=== PATIENT | female | born 1985 | race Caucasian/White ===

== ENCOUNTER 2019-09-16 14:13 | Emergency (ER) | payer BC, SELFPAY ==
[2019-09-16 14:13] VITALS: BP 120/68; PULSE 90; RESP 26; O2SAT 100; BMI 21.7
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
[2019-09-16] MEDS: ondansetron 2 mg/ML SDV 2 mL 4 MG IVP (14:29)
[2019-09-16 14:31] VITALS: RESP 20
[2019-09-16] MEDS: HYDROmorphone 1 mg/mL INJ 1 mL (14:31)
[2019-09-16] MEDS: HYDROmorphone 1 mg/mL INJ 1 mL 2 MG (14:31)
[2019-09-16 14:36] LABS: Basophils % 0.2 %; Eosinophils # 0.3 10^3/uL (0.0-0.8); Eosinophils % 1.7 %; Hematocrit 41.9 % (37.0-47.0); Hemoglobin 12.5 g/dL (11.5-15.3); Lymphocytes # 2.9 10^3/uL (0.8-4.8); Lymphocytes % 16.9 %; Mean Corpuscular HGB Conc 29.8 g/dL (30.0-36.0); Mean Corpuscular Hemoglobin 26.7 pg (28.0-34.0); Mean Corpuscular Volume 89.3 fL (81-99); Mean Platelet Volume 11.4 fL (7.4-10.4); Monocytes # 0.9 10^3/uL (0.2-0.9); Monocytes % 5.4 %; Neutrophils # 12.8 10^3/uL (1.8-7.7); Neutrophils % 75.4 %; Nucleated Red Blood Cells % 0 %; Platelet Count 250 10^3/cmm (130-400); Red Blood Count 4.69 10^6/uL (4.1-5.3); Red Cell Distribution Width 12.8 % (12.1-15.1)
[2019-09-16 14:37] VITALS: RESP 20
[2019-09-16 14:37] LABS: INR 1.08 (0.8-1.2)
[2019-09-16] MEDS: ondansetron 2 mg/ML SDV 2 mL 4 MG ×2 (14:37→15:10)
[2019-09-16] MEDS: sodium chloride 0.9% 1,000 ML 999 ML IV ×2 (14:37→15:11)
[2019-09-16] MEDS: HYDROmorphone 1 mg/mL INJ 1 mL 3 MG IVP (14:37)
[2019-09-16 14:45] LABS: Alanine Aminotransferase 26 U/L (0-33); Albumin Level 4.4 g/dL (3.5-5.2); Alkaline Phosphatase 54 IU/L (35-105); Anion Gap 15.3 (5-19); Aspartate Amino Transferase 37 U/L (0-32); Blood Urea Nitrogen 11 mg/dL (6-20); Calcium 9.1 mg/dL (8.5-10.5); Carbon Dioxide 21 mmol/L (22-29); Chloride 102 mmol/L (98-107); Globulin 2.5 g/dL (1.3-4.6); Glomerular Filtration Rate 113.1 mL/min (90-130); Glucose 154 mg/dL (74-109); Potassium 3.3 mmol/L (3.5-5.1); Sodium 135 mmol/L (136-145); Total Bilirubin 0.4 mg/dL (0.15-1.2); Total Protein 6.9 g/dL (6.6-8.7)
[2019-09-16 14:47] LABS: Alcohol Level < 10 mg/dL (0-10)
[2019-09-16] MEDS: ceFAZolin 1,000 MG in sodium chloride 0.9% (plus) 50 ML 100 MG IV (14:51)
--- NOTE | 2019-09-16 14:53 | PC.NURSE ---
Pt returned from CT. Family updated.
[2019-09-16] MEDS: LORazepam 2 mg/mL INJ 1 mL 0.5 MG IVP (15:40)
[2019-09-16 15:41] VITALS: BP 106/68; PULSE 71; RESP 12; O2SAT 98
[2019-09-16 15:51] VITALS: BP 114/66; PULSE 86; RESP 16; O2SAT 99
[2019-09-16] MEDS: iodixanol 320 mg/mL 100mL Btl IV (16:08)
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
== END 2019-09-16 15:52 | disposition other institution (70) ==
LOC: ER 14:58
PROVIDERS: Emergency Provider Emergency Medicine; Family Provider Family Medicine; PCP Family Medicine
DX: S12.100A Unspecified displaced fracture of second cervical vertebra, initial encounter for closed fracture (principal); S82.251A Displaced comminuted fracture of shaft of right tibia, initial encounter for closed fracture; S82.51XA Displaced fracture of medial malleolus of right tibia, initial encounter for closed fracture; S82.831A Other fracture of upper and lower end of right fibula, initial encounter for closed fracture; S01.01XA Laceration without foreign body of scalp, initial encounter; V89.2XXA Person injured in unspecified motor-vehicle accident, traffic, initial encounter; S89.192A Other physeal fracture of lower end of left tibia, initial encounter for closed fracture; S82.52XA Displaced fracture of medial malleolus of left tibia, initial encounter for closed fracture; S82.422A Displaced transverse fracture of shaft of left fibula, initial encounter for closed fracture; S92.192A Other fracture of left talus, initial encounter for closed fracture
CPT/HCPCS: 12001; 12004; 36415; 51702; 70450; 71260; 72125; 73610; 74177; 80053; 80307; 83605; 85025; 85610; 86900; 96360; 96361; 96365; 96374; 99284; J0690; J1170; J2001; J2060; J2405; J7030; Q9967

== ENCOUNTER 2020-04-25 10:10 | Emergency (ER) | payer MEDICAID, SELFPAY ==
[2020-04-25 10:16] VITALS: BP 147/81; PULSE 94; RESP 16; TEMP 36.7; O2SAT 95; BMI 24.7
[2020-04-25 10:25] VITALS: PULSE 87
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
[2020-04-25 10:46] VITALS: BP 119/84; PULSE 72; RESP 18; O2SAT 99
== END 2020-04-25 10:47 | disposition home or self-care (01) ==
LOC: ER 11:18
PROVIDERS: Emergency Provider Nurse Practitioner Family
DX: M79.605 Pain in left leg (principal)
CPT/HCPCS: 12345; 99281

== ENCOUNTER 2021-05-28 16:38 | Emergency (ER) | payer BC, MEDICAID, SELFPAY ==
[2021-05-28 17:28] VITALS: BP 129/84; PULSE 67; RESP 16; TEMP 36.7; O2SAT 99; BMI 27.9
--- NOTE | 2021-05-28 17:52 | XRR_ITS ---
PROCEDURE INFORMATION: Exam: XR Left Ankle Exam date and time: 05/28/2021 5:52 PM Age: 35 years old Clinical indication: Injury or trauma; Fall; Sprain or strain; Ankle; Left; Prior surgery TECHNIQUE: Imaging protocol: XR Left ankle. Views: 3 or more views. COMPARISON: No relevant prior studies available. FINDINGS: Bones/joints: No acute fractures. Joint space narrowing throughout tibiotalar joint. Patchy sclerotic mineralization changes of the distal tibia. Cortical irregularity and fragmentation on the anterior side of the distal tibia. Surgical plate and screws fixate the medial tibia and the lateral fibula without evidence of hardware loosening. Surgical plate and screw fixation of 1st digit. Small osseous fragments project at the anterior margin of the tibiotalar joint. Arthritis changes with joint space narrowing and subcortical sclerosis of the subtalar joint. Soft tissues: Normal. XR/XR ankle LT min 3V* [id number] IMPRESSION: Arthritis changes throughout the hindfoot. Radiation Dose CTDIVOL = (mGy): DLP = (mGy-cm)
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
[2021-05-28] MEDS: HYDROcodone-acetaminophen 5-325 mg Tablet 1 TAB PO (18:35)
[2021-05-28 18:37] VITALS: BP 122/82; PULSE 60; RESP 18; O2SAT 100
== END 2021-05-28 18:35 | disposition home or self-care (01) ==
PROVIDERS: Emergency Provider Nurse Practitioner Family; PCP Nurse Practitioner Family
DX: S93.402A Sprain of unspecified ligament of left ankle, initial encounter (principal); S96.912A Strain of unspecified muscle and tendon at ankle and foot level, left foot, initial encounter; X50.1XXA Overexertion from prolonged static or awkward postures, initial encounter
CPT/HCPCS: 73610; 99283

== ENCOUNTER 2021-10-01 08:40 | Emergency (ER) | payer OTHER, BC, MEDICAID, SELFPAY ==
[2021-10-01 08:54] VITALS: BP 114/80; PULSE 81; RESP 16; TEMP 36.5; O2SAT 98; BMI 28.7
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
--- NOTE | 2021-10-01 09:17 | XR_ITS ---
WS: [id number] XR ankle LT min 3V* [id number] REASON FOR EXAM: fall injury with ankle pain FINDINGS: No acute fracture identified. Plate and screw fixation of previous tibial and fibular fractures. Alignment and position of the plat e and screws are unchanged compared to 05/28/2021. Moderately severe posttraumatic osteoarthritis of the ankle joint. XR/XR ankle LT min 3V* [id number] IMPRESSION: No acute abnormality.
--- NOTE | 2021-10-01 09:18 | PC.NURSE ---
Pt states she fell on ice. states she did not hit her head. pt had a tubal reversal 3 days ago. wanted to get the stitches checked out. c/o alta ankle pain. no deformity noted.
--- NOTE | 2021-10-01 09:19 | W.ED.FALL ---
HPI - Fall General: Chief Complaint: Fall Stated Complaint: Left leg pain Time Seen by Provider: 10/01/21 09:08 History of Present Illness: Patient is a 36-year-old female who comes to the ED after having a fall. Patient says she went outside and slipped on some ice. During fall she hurt both right and left ankle. She rates her pain currently an 8 out of 10. Patient did have a recent tubal reversal surgery approximately 3 days ago. She wanted us to check the surgical incision site. She wanted us to make sure the incision site did not after fall. Denies any known bleeding or drainage from surgical incision site. Associated symptoms-after fall: Denies abdominal pain, chest pain, headache(s), hematuria or neck pain Review of Systems Const: Denies: fever(s), chills or fatigue Eyes: Denies: change in vision or eye discomfort ENMT: Denies: throat pain, odynophagia, nasal discharge or nasal congestion Card: Denies: chest pain, palpitations, edema, swelling of feet/ankles, dyspnea on exertion or orthopnea Resp: Denies: dyspnea, productive cough or non-productive cough GI: Denies: abdominal pain, nausea, vomiting, diarrhea, constipation or hematochezia : Denies: flank pain, dysuria or hematuria Musc: Reports: extremity pain (right and left ankle); Denies: neck pain or back pain Skin/Breast: Denies: rash or new lesions Neuro: Denies: headache(s) [facility] ED PFSH: Medical History Ankle fracture, left No pertinent family history Social History Smoking and tobacco status: unknown if ever smoked Female Reproductive History: Date of last menstrual period: 09/18/21 Physical Exam Const: COMMON NORMALS: no acute distress, patient oriented x3, healthy appearing and alert GENERAL APPEARANCE: cooperative and comfortable HENMT: COMMON NORMALS: normocephalic HEAD & SCALP: normocephalic MOUTH: Normal oral and palatal mucosa present THROAT: posterior oropharynx normal and uvula midline Neck/C-Spine: COMMON NORMALS: supple GENERAL: Yes normal visual inspection Resp: COMMON NORMALS: normal respiratory effort, No retractions, No use of accessory muscles and clear to auscultation bilaterally AUSCULTATION: clear to auscultation bilaterally Cardio: COMMON NORMALS: regular rate, regular rhythm, S1 normal heart sound present, S2 normal heart sound present, No gallops present (Cardio), No clicks present (Cardio), No murmurs present (Cardio) and Peripheral pulses 2+ throughout RATE: regular rate RHYTHM: regular rhythm HEART SOUNDS: S1 normal heart sound present and S2 normal heart sound present PERIPHERAL PULSES: Peripheral pulses 2+ throughout GI: COMMON NORMALS: Normal to inspection, nondistended, normoactive bowel sounds present, Soft to palpation, non-tender and no masses INSPECTION: Yes incision (6 cm incision over lower mid pelvis. No bleeding or drainage.) Inspection of incision: healing well (No signs of any cellulitis noted. Mild right side dehiscence) PALPATION: Yes Soft to palpation : COMMON NORMALS: Yes no CVA tenderness BLADDER/KIDNEY EXAM: Yes no CVA tenderness Back/Pelvis: COMMON NORMALS: no CVA tenderness Extremity: RIGHT LOWER EXTREMITY: Yes foot & digits Right ankle: Yes inspection (No visible deformity.), Yes palpation (Tenderness over medial aspect of ankle), Yes ROM (Limited due to pain) and Yes neurovascular exam (Intact) LEFT LOWER EXTREMITY: Yes ankle joint Left ankle: Yes inspection (No visible deformity seen), Yes palpation (Tenderness over lateral malleolus), Yes ROM (Limited due to pain) and Yes neurovascular exam (Intact) Neuro: COMMON NORMALS: patient oriented x3 and moves all extremities SENSORIUM/ORIENTATION: Yes alert Skin: GENERAL SKIN EXAM: dry skin WOUNDS: Yes surgical site (Incision site healing well-no erythema, drainage or bleeding.) Details: size (6cm) and bed Details: granulating well OTHER: The right edge of the wound had some very mild dehiscence. Course ED course: The right edge of surgical site on mid lower pelvis had very mild dehiscence. No erythema, warmth, drainage or bleeding seen. A Steri-Strip was placed to help keep incision area closed and help with healing. No signs of any cellulitis around incision site noted. Vital Signs: Vital signs: Vital Signs Temperature 97.7 F 10/01/21 08:54 Pulse Rate 81 10/01/21 08:54 Respiratory Rate 16 10/01/21 08:54 Blood Pressure 114/80 02/07/22 08:54 Pulse Oximetry 98 02/07/22 08:54 MDM - Fall Medical Decision Making Patient is a 36-year-old female comes to the ED with bilateral ankle pain after fall. Patient has a history of a past left ankle fracture. Vitals are stable. Patient appears in no acute distress or pain. No visible deformities noted but she does have some mild tenderness of bilateral ankles. Neurovascular intact. Patient did want me to examine her recent incision site to make sure fall did not cause the incision to open up. Patient has a 6 cm incision site in the mid pelvis that is healing well and showing no signs of any infection. There was a little bit of wound dehiscence on the right edge of incision site so a Steri-Strip was placed. X-rays of right and left ankle showed no acute fractures or findings. Patient was diagnosed with a sprain strain of ankle and discharged home. She was told to use her crutches at home to help with ambulation for the next couple days. Rest, ice and elevate ankle. Follow-up with PCP in 7 to 10 days for reevaluation. Return to ED precautions given. Patient understood and agreed with plan. Lab Data Radiology Impressions Ankle X-Ray 10/01/21 09:17 IMPRESSION: Previous complex fracture dislocation with fixation. No acute abnormality. Discharge Plan Discharge Patient Disposition: Home Clinical Impression: Sprain and strain of ankle Condition: Stable Prescriptions: No Action fluoxetine 20 mg capsule 40 mg PO DAILY 0RF ropinirole 1 mg tablet 2 mg PO DAILY PRN0RF meloxicam 7.5 mg tablet 7.5 mg PO BID 0RF gabapentin 300 mg capsule 300 mg PO DAILY 0RF tramadol 50 mg tablet 50 mg PO Q6H PRN (Reason: pain) Qty: 14 0RF Skelaxin 800 mg tablet 800 mg PO TID PRN (Reason: muscle pain) Qty: 10 0RF hydrocodone-acetaminophen 5-325 mg tablet 1 tab PO TID PRN (Reason: pain) Qty: 7 0RF Discharge Orders: Discharge ED (Routine); Ordered 10/01/21 Ordered By: Víctor Stiles Referrals: Edwin Schmitz NP [Primary Care Provider] - Discharge Diet: Regular Discharge Activity: Limit activity as instructed and Use walker/crutches as instructed Patient Instructions: Ankle Sprain (ED) Activity Restrictions/Additional Instructions: Follow-up with medical provider as directed in 7 to 10 days for reevaluation. Rest, ice and elevate ankles to help with symptoms. Use crutches to help with ambulation and limit weightbearing for the next 2 to 3 days. Take [id number] Tylenolor ibuprofen per bottle instructions to help with pain and inflammation. Return to the ER or your medical provider if condition worsens. Please read and understand discharge instructions. Thank you for choosing [facility] for your healthcare needs today. Please realize this is an emergency room and that we are providing you with a medical screening exam and this may not be complete and all inclusive of all the testing and or work up that you may need to determine your ailment or severity of your illness. It is very important that you follow up as instructed or that you return to the Emergency Department should you have concerns or if your condition changes or worsens in any way. Coding Level of Care Code ED Blow Down Operator for Deborah Han Exam Comprehensive
[2021-10-01] MEDS: HYDROcodone-acetaminophen 7.5-325 mg Tablet 1 TAB PO (09:31)
[2021-10-01 10:11] VITALS: BP 100/57; PULSE 72; RESP 18; O2SAT 98
== END 2021-10-01 10:13 | disposition home or self-care (01) ==
PROVIDERS: Emergency Provider Physician Assistant; PCP Nurse Practitioner Family
DX: S93.402A Sprain of unspecified ligament of left ankle, initial encounter (principal); S96.912A Strain of unspecified muscle and tendon at ankle and foot level, left foot, initial encounter; W00.0XXA Fall on same level due to ice and snow, initial encounter
CPT/HCPCS: 73610; 99283

== ENCOUNTER 2025-04-25 05:00 | Outpatient (RCR) | payer MEDICARE, OTHER, MEDICAID, SELFPAY | END 2025-05-24 23:59 | disposition home or self-care (01) | LOC: GPT 05:00 | PROVIDERS: Visit Provider Nurse Practitioner Family | DX: M54.2 Cervicalgia (principal) | CPT/HCPCS: 97110; 97140; 97161 ==

== ENCOUNTER 2025-06-20 08:40 | Outpatient (RCR) | payer MEDICARE, OTHER, MEDICAID, SELFPAY | END 2025-06-24 23:59 | disposition home or self-care (01) | LOC: GPT 08:40 | PROVIDERS: Visit Provider Nurse Practitioner Family | DX: M54.2 Cervicalgia (principal) | CPT/HCPCS: 97110; 97140 ==

== ENCOUNTER 2025-07-13 08:53 | Outpatient (RCR) | payer MEDICARE, OTHER, MEDICAID, SELFPAY | END 2025-07-13 13:34 | disposition home or self-care (01) | LOC: GPT 08:53 | PROVIDERS: Visit Provider Nurse Practitioner Family | DX: M54.2 Cervicalgia (principal) | CPT/HCPCS: 97110; 97112; 97140 ==